=== PATIENT | female | born 1950 | race Hispanic/Latino ===

== ENCOUNTER → 2019-09-24 | Outpatient (CLI) | payer BC, OTHER | END | disposition home or self-care (01) | LOC: RAH 10:32 | PROVIDERS: ATTEND Physical Medicine & Rehabilitation | DX: M47.26 Other spondylosis with radiculopathy, lumbar region (principal); M48.061 Spinal stenosis, lumbar region without neurogenic claudication; M25.78 Osteophyte, vertebrae | CPT/HCPCS: 72100 ==

== ENCOUNTER → 2019-10-16 | Outpatient (CLI) | payer MEDICARE | END | disposition home or self-care (01) | LOC: RAH 07:38 | PROVIDERS: ATTEND Physical Medicine & Rehabilitation | DX: M51.16 Intervertebral disc disorders with radiculopathy, lumbar region (principal); E86.0 Dehydration; R60.9 Edema, unspecified; M89.38 Hypertrophy of bone, other site; M48.061 Spinal stenosis, lumbar region without neurogenic claudication | CPT/HCPCS: 72148 ==

== ENCOUNTER → 2019-10-17 | Outpatient (CLI) | payer MEDICARE | END | disposition home or self-care (01) | LOC: RAH 11:42 | PROVIDERS: ATTEND Physical Medicine & Rehabilitation | DX: M17.12 Unilateral primary osteoarthritis, left knee (principal); M16.12 Unilateral primary osteoarthritis, left hip; M25.752 Osteophyte, left hip | CPT/HCPCS: 73502; 73562 ==

== ENCOUNTER → 2020-07-21 | Outpatient (CLI) | payer MEDICARE | END | disposition home or self-care (01) | LOC: RAH 15:34 | PROVIDERS: ATTEND Physical Medicine & Rehabilitation | DX: M19.032 Primary osteoarthritis, left wrist (principal) | CPT/HCPCS: 73100; 73130 ==

== ENCOUNTER → 2021-11-14 | Outpatient (CLI) | payer MEDICARE | END | disposition home or self-care (01) | LOC: RAH 08:52 | PROVIDERS: ATTEND Physical Medicine & Rehabilitation | DX: M47.817 Spondylosis without myelopathy or radiculopathy, lumbosacral region (principal); M48.07 Spinal stenosis, lumbosacral region; M51.27 Other intervertebral disc displacement, lumbosacral region; M41.9 Scoliosis, unspecified; Z88.0 Allergy status to penicillin; Z88.1 Allergy status to other antibiotic agents; Z88.6 Allergy status to analgesic agent | CPT/HCPCS: 72114; 72148 ==

== ENCOUNTER → 2023-07-31 | Outpatient (CLI) | payer MEDICARE | END | disposition home or self-care (01) | LOC: RAH 13:32 | PROVIDERS: ATTEND Physical Medicine & Rehabilitation | DX: M47.816 Spondylosis without myelopathy or radiculopathy, lumbar region (principal); M48.061 Spinal stenosis, lumbar region without neurogenic claudication | CPT/HCPCS: 72131 ==

== ENCOUNTER → 2023-11-27 | Outpatient (CLI) | payer MEDICARE | END | disposition home or self-care (01) | LOC: RAH 10:00 | PROVIDERS: ATTEND Physical Medicine & Rehabilitation | DX: S33.120A Subluxation of L2/L3 lumbar vertebra, initial encounter (principal); S33.130A Subluxation of L3/L4 lumbar vertebra, initial encounter; M47.27 Other spondylosis with radiculopathy, lumbosacral region; M48.07 Spinal stenosis, lumbosacral region; X58.XXXA Exposure to other specified factors, initial encounter; Y93.89 Activity, other specified; Y92.89 Other specified places as the place of occurrence of the external cause; Y99.8 Other external cause status | CPT/HCPCS: 72148 ==

== ENCOUNTER → 2024-06-11 | Outpatient (CLI) | payer MEDICARE | END | disposition home or self-care (01) | LOC: RAH 14:02 | PROVIDERS: ATTEND Neurological Surgery | DX: M47.26 Other spondylosis with radiculopathy, lumbar region (principal); M48.07 Spinal stenosis, lumbosacral region; M43.16 Spondylolisthesis, lumbar region | CPT/HCPCS: 72131 ==

== ENCOUNTER → 2025-08-19 | Outpatient (CLI) | payer MEDICARE ==
--- NOTE | 2025-08-20 01:53 | HMCIMG ---
EXAM: CR Lumbar Spine, 3 Views. CLINICAL HISTORY: LUMBAR RADICULOPATHY COMPARISON: None provided. FINDINGS: No acute fracture or aggressively appearing osseous lesion. Posterior spinal fusion with pedicle screws and an intervertebral disc spacer from L3 to L5 level. No hardware-related complications. Mild dextroscoliosis. Disc osteophyte complexes with loss of disc height at T12-L1 and L1-L2 levels. Few marginal osteophytes along the anterior lumbar curve. The soft tissues are unremarkable. IMPRESSION: No acute lumbar spine abnormality is evident. Lumbar hardware is present with no complications. Mild dextroscoliosis with lumbar spondylotic changes predominantly at T12-L3 levels. Suggested MR for further evaluation. /[place]
== END | disposition home or self-care (01) ==
LOC: RAH 10:17
PROVIDERS: ATTEND Neurological Surgery
DX: M47.815 Spondylosis without myelopathy or radiculopathy, thoracolumbar region (principal); M54.16 Radiculopathy, lumbar region; M41.86 Other forms of scoliosis, lumbar region; M25.78 Osteophyte, vertebrae
CPT/HCPCS: 72100